=== PATIENT | male | born 1985 | race Caucasian/White ===

== ENCOUNTER 2018-06-28 12:50 | Emergency (ER) | payer SELFPAY ==
[2018-06-28 13:34] LABS: Bilirubin Negative (Negative); Blood, Urine Negative (Negative); Clarity CLEAR (Clear); Glucose, Urine (Dipstick) Negative (Negative); Leukocyte Negative (Negative); Nitrite Negative (Negative); Protein, Urine (Dipstick) Negative (Neg-Trace); Specific Gravity, Urine 1.017 (1.002-1.036); pH, Urine 6.5 (5.0-9.0)
[2018-06-28 13:43] LABS: #Eosinphils 0.1 thou/uL (0.0-0.7); #Lymphocytes 1.4 thou/uL (1.20-3.40); #Monocytes 0.8 thou/uL (0.11-0.59); #Neutrophils 7.2 thou/uL (1.40-6.50); %Basophils 0.5 % (0.0-1.0); %Eosinophils 1.4 % (0.0-10.0); %Lymphocytes 14.1 % (21.0-51.0); %Monocytes 8.8 % (0.0-10.0); %Neutrophils 75.2 % (42.0-75.0); Hemoglobin 15.5 g/dL (14.0-18.0); Mean Corpuscular HGB CONC 34.2 g/dL (32.0-36.0); Mean Corpuscular Hemoglobin 30.5 pg (27.0-31.0); Mean Corpuscular Volume 89.3 fL (78.0-98.0); Mean Platelet Volume 7.5 fL (7.4-10.4); Platelet Count 211 thou/uL (130-400); RBC Distribution Width 11.5 % (11.5-14.5); Red Blood Cell (RBC) Count 5.09 mill/uL (4.70-6.10); White Blood Cell (WBC) Count 9.6 thou/uL (4.8-10.8)
[2018-06-28] MEDS ORDERED: Ketorolac Tromethamine 30 MG/ML VIAL ONE (13:52)
[2018-06-28] MEDS ORDERED: Metoclopramide HCl 10 MG/2 ML VIAL ONE (13:52)
[2018-06-28 14:14] LABS: ALT (SGPT) 14 U/L (8-55); AST (SGOT) 21 U/L (5-34); Alkaline Phosphatase 73 U/L (40-150); Anion Gap 11 mmol/L (10-20); BUN (Urea Nitrogen) 9 mg/dL (8.9-20.6); Calc. Creatinine Clearance 0 mL/min (70-130); Carbon Dioxide 25 mmol/L (22-29); Chloride 105 mmol/L (98-107); Estimated GFR-MDRD 51; Globulin 3.2 g/dL (2.4-3.5); Glucose 104 mg/dL (70-105); Potassium 3.7 mmol/L (3.5-5.1); Protein, Total 7.2 g/dL (6.0-8.3); Sodium 137 mmol/L (136-145)
--- NOTE | 2018-06-28 14:25 | CT ---
CT OF ABDOMEN AND PELVIS PERFORMED WITHOUT CONTRAST ENHANCEMENT: History: Left flank pain. FINDINGS: Lung bases are clear. The liver, spleen, pancreas, and gallbladder regions appear unremarkable on this noncontrast study. R ight and left adrenal glands are normal in appearance. Right and left kidneys are normal in size. The re are no renal calculi identified. The left collecting system is slightly dilated. The left ureter i s not significantly dilated but there is a 2 mm left ureteral vesical junction calculus. Actually, th is may have been expelled into the bladder or may be an intramural portion of the ureter. There is no significant periaortic or mesenteric adenopathy. CT OF PELVIS PERFORMED WITHOUT CONTRAST ENHANCEMENT: Appendix is normal. There is no adenopathy or mass. No free fluid. Prostate is slightly prominent for age. IMPRESSION: 2-3 mm left ureteral vesical junction calculus associated with some mild left sided hydronephrosis. POS: JUAN
[2018-06-28] MEDS ORDERED: HYDROcodone/Acetaminophen 10/325 mg Tablet ONE (15:15)
== END 2018-06-28 15:40 | disposition home or self-care (01) ==
LOC: ERS 12:50
DX: N13.2 Hydronephrosis with renal and ureteral calculous obstruction (principal); F90.9 Attention-deficit hyperactivity disorder, unspecified type
CPT/HCPCS: 36415; 74176; 80053; 81003; 85025; 96365; 96375; J1885; J2765

== ENCOUNTER 2019-01-23 11:06 | Day surgery (SDC) | payer OTHER ==
[2019-01-23] MEDS ORDERED: Glycopyrrolate 0.2 MG/ML 5 ML SYRINGE ONE (11:21)
[2019-01-23] MEDS ORDERED: PROPOFOL 200 MG/20 ML VIAL ONE (11:21)
[2019-01-23] MEDS ORDERED: Lidocaine 1% PF 5 ML VIAL ONE (11:21)
[2019-01-23] MEDS ORDERED: Rocuronium Bromide 10 MG/ML (10ML VIAL) ONE (11:21)
[2019-01-23] MEDS ORDERED: Dexamethasone 20 MG/5 ML VIAL ONE (11:21)
[2019-01-23] MEDS ORDERED: Metoclopramide HCl 10 MG/2 ML VIAL ONE (11:21)
[2019-01-23] MEDS ORDERED: Ondansetron PF 4 MG/2 ML Vial ONE (11:21)
[2019-01-23] MEDS ORDERED: Fentanyl 100 MCG/2 ML VIAL ONE ×2 (12:02→13:35)
[2019-01-23] MEDS ORDERED: Indomethacin 50 MG SUPP ONE (12:03)
[2019-01-23] MEDS ORDERED: Iothalamate Meglumine 60% 50 ML VIAL FS ONE (12:03)
--- NOTE | 2019-01-23 13:29 | RAD ---
EXAM: XR ERCP PROVIDED CLINICAL HISTORY: Cholecystectomy. COMPARISON: None FINDINGS/IMPRESSION: 3 intraoperative fluoroscopic images from ERCP are submitted. The common duct is cannulated. There is faint opacification of the common duct as well as intrahepatic ducts without evidence of biliary ductal dilatation. No obvious filling defect is seen to suggest a calculus. The most distal common du ct as well is free spill of contrast into the duodenum are not well appreciated or visualized on this exam. There is amorphous area of contrast seen overlying the region of the proximal left hepatic ducts probably due to superimposition of multiple bile. Surgical clips overlie the right upper quadrant. Correlation with intraoperative findings is recommended.
[2019-01-23] MEDS ORDERED: Promethazine HCl 25 MG/ML VIAL ONE (13:36)
--- NOTE | 2019-01-23 19:53 | OP ---
DATE OF PROCEDURE: 01/23/2019 PREMEDICATION: Given by Anesthesiology Department. PREPROCEDURE DIAGNOSES: 1. Recurrent abdominal pain. 2. Suspect choledocholithiasis. 3. Status post cholecystectomy for cholelithiasis. POSTPROCEDURE DIAGNOSES: 1. No evidence of choledocholithiasis. 2. Small caliber common bile duct. PROCEDURES PERFORMED: Endoscopic retrograde cholangiopancreatography with sphincterotomy. DESCRIPTION OF PROCEDURE: Written consents were obtained prior to procedure. After adequate sedation, a side-viewing endoscope was advanced down the stomach to the pylorus into the duodenum. The ampulla was visualized and appeared normal. Selective cannulation was performed with the help of a guidewire. Selective cannulation was performed into the common bile duct. The pancreatic duct was never entered or opacified. Injection contrast showed a uniformly narrowed common duct measuring approximately 3 to 4 mm. A sphincterotomy was performed. A balloon was then used to sweep the duct. There was no evident of choledocholithiasis. Cholangiogram was normal. Both the intrahepatic and extrahepatic biliary tree filled and appeared normal. The patient procedure well. ASSESSMENT: 1. No evidence of choledocholithiasis. 2. Status post sphincterotomy with normal cholangiogram. PLAN: We will discharge to home and monitor for any symptom progress. Job ID: [id number]
== END 2019-01-23 15:42 | disposition home or self-care (01) ==
LOC: SDC 11:06
PROVIDERS: ATTEND Internal Medicine Gastroenterology
PROC: 0F798ZZ Dilation of Common Bile Duct, Via Natural or Artificial Opening Endoscopic (ICD-10-PCS; principal; 2019-01-23)
DX: K83.8 Other specified diseases of biliary tract (principal); K21.9 Gastro-esophageal reflux disease without esophagitis; K64.9 Unspecified hemorrhoids; Z79.899 Other long term (current) drug therapy
CPT/HCPCS: 74330; J1100; J1610; J2001; J2405; J2550; J2704; J2765; J3010; Q9961

== ENCOUNTER 2019-02-10 07:36 | Outpatient (CLI) | payer OTHER ==
--- NOTE | 2019-02-10 09:14 | CT ---
CT ABDOMEN AND PELVIS WITH ORAL AND IV CONTRAST HISTORY: Abdominal pain, left lower quadrant pain, reflux. COMPARISON: CT abdomen pelvis without contrast dated 06/28/2018 FINDINGS: The lung bases are clear. Interval changes of cholecystectomy are seen. The liver, spleen, pancreas, adrenal glands and left kidney are normal. There are small subcentimeter low-density lesions in the right kidney, likely cysts.. No hydroureteronephrosis is seen in either side. No calculi noted in the kidneys, ureters or the urinary bladder. No free air, free fluid or lymphadenopathy is identified in the abdomen or pelvis. The aorta demonstr ates normal diameter. The small bowel loops are not abnormally dilated. A normal-appearing appendix is seen. No pericolonic inflammatory changes are seen. No significant bony abnormalities are identifi ed. No abnormally loculated fluid collection is identified to suggest abscess formation. IMPRESSION: No evidence of acute process.
== END 2019-02-10 07:37 | disposition home or self-care (01) ==
LOC: SCSCT 07:36
PROVIDERS: ATTEND Internal Medicine Gastroenterology
DX: K21.9 Gastro-esophageal reflux disease without esophagitis (principal); R10.10 Upper abdominal pain, unspecified; R10.32 Left lower quadrant pain
CPT/HCPCS: 74177

== ENCOUNTER 2024-10-30 17:11 | Emergency (ER) | payer BC ==
[2024-10-30 17:42] LABS: #Basophils 0.03 10x3/uL (0.0-0.2); %Basophils 0.4 % (0.0-1.0); %Eosinophils 3.6 % (0.0-10.0); %Lymphocytes 23.1 % (21.0-51.0); %Monocytes 8.3 % (0.0-10.0); %Neutrophils 64.3 % (42.0-75.0); Hematocrit 49.4 % (42.0-52.0); Hemoglobin 16.8 g/dL (14.0-18.0); Mean Corpuscular Hemoglobin 29.7 pg (27.0-31.0); Mean Corpuscular Volume 87.3 fL (78.0-98.0); Mean Platelet Volume 9.6 fL (7.4-10.4); Platelet Count 284 10x3/uL (130-400); RBC Distribution Width 12.4 % (11.5-14.5); Red Blood Cell (RBC) Count 5.66 mill/uL (4.70-6.10)
[2024-10-30 17:59] LABS: ALT (SGPT) 28 U/L (Less than 45); AST (SGOT) 26 U/L (11-34); Albumin 4.3 g/dL (3.1-4.5); Alkaline Phosphatase 76 U/L (40-110); Anion Gap 10 mmol/L (10-20); BUN (Urea Nitrogen) 6 mg/dL (8.9-20.6); Bilirubin, Total 0.6 mg/dL (0.3-1.2); Calc. Creatinine Clearance 0 mL/min (70-130); Calcium 9.2 mg/dL (7.8-10.44); Carbon Dioxide 25 mmol/L (22-29); Chloride 107 mmol/L (98-107); Estimated GFR 79; Globulin 3.4 g/dL (2.4-3.5); Glucose 95 mg/dL (70-105); Lipase 19 U/L (8-78); Potassium 3.6 mmol/L (3.5-5.1); Protein, Total 7.7 g/dL (6.0-8.3); Sodium 138 mmol/L (136-145)
[2024-10-30 19:17] LABS: Bacteria/HPF None Seen HPF (None Seen); Bilirubin Negative (Negative); Blood, Urine Negative (Negative); CAUTI Indications for Culture Pelvic or flank pain; Clarity Clear (Clear); Glucose, Urine (Dipstick) Normal (Negative); Ketone, Urine Negative (Negative); Leukocyte Negative Leu/uL (Negative); Nitrite Negative (Negative); Protein, Urine (Dipstick) Negative (Neg-Trace); RBC/HPF 0-3 HPF (0-3); Specific Gravity, Urine 1.002 (1.002-1.036); Squamous Epithelial None Seen HPF (0-3); Urobilinogen Normal mg/dL (Less than 2); WBC/HPF None Seen HPF (0-3); pH, Urine 6.5 (5.0-9.0)
[2024-10-30 19:36] LABS: Urine Culture Reflex No No
== END 2024-10-30 20:14 | disposition home or self-care (01) ==
LOC: ERS 17:11
DX: I88.0 Nonspecific mesenteric lymphadenitis (principal)
CPT/HCPCS: 36415; 74176; 80053; 81001; 83690; 85025